=== PATIENT | female | born 1960 | race Caucasian/White ===

== ENCOUNTER 2019-03-21 06:38 | Day surgery (SDC) | payer MEDICAID ==
[~2019-03-21 06:38] MED LIST: ACETAMINOPHEN 1,000 MG/100 ML BTL IVPB ONE; CEFAZOLIN 2 Gram 2 GM/50 ML BAG IVPB SCH; FAMOTIDINE 20MG TABLET PO ONE; HYDROMORPHONE PF 2MG/ML AMP 0.008 MG in 0.9 % SODIUM CHLORIDE 10ML VIA 0.996 ML IV ONE; HYDROMORPHONE PF 2MG/ML AMP 8 MG in 0.9 % SODIUM CHLORIDE 500ML 496 ML IV ONE; MECLIZINE 25 MG TABLET PO ONE; METOCLOPRAMIDE 10 MG TABLET PO ONE
--- NOTE | 2019-03-21 06:38 | History and Physical - [facility] ---
CHIEF COMPLAINT/HISTORY OF CHIEF COMPLAINT: This patient presents with a history of intractable lumbar radiculopathy. Due to the failure of all therapies, she is here for an implanted spinal catheter infusion trial of Hydromorphone to determine if the implantation of a permanent system can be of any value in pain control. PAST MEDICAL HISTORY: Hypothyroidism, chronic obstructive pulmonary disease, hypertension, and cerebrovascular disease. PAST SURGICAL HISTORY: Hysterectomy, ACL knee surgery, and carpal tunnel release. MEDICATIONS ON ADMISSION: List to be provided. ALLERGIES: CLINDAMYCIN AND SERTRALINE. FAMILY/PSYCHOSOCIAL HISTORY: Social history - Smoking and social alcohol. Family history - Thyroid disease, hypertension, and cerebrovascular disease. SYSTEMS REVIEW: The patient is appropriate in no acute distress. The remainder of the systems review is positive for gastritis, degenerative arthritis, depression, and difficulty sleeping. PHYSICAL EXAMINATION: Height is 5'4", weight is 160. No vital signs. HEENT: Within normal limits. LUNGS: Clear. HEART: Rapid and regular. ABDOMEN: Nontender. MUSCULOSKELETAL: Examination of the musculoskeletal system shows diffuse tenderness throughout the lumbar spine. Range of motion does produce pain into both legs across a L5-S1 pattern. Mild motor and mild sensory abnormalities across a L5-S1 distribution, bilateral. Ambulation - Assistive device utilized. NEUROLOGIC: Cranial nerves are intact. IMPRESSION: INTRACTABLE LUMBAR RADICULOPATHY, ICD-10 CODE M54.16 AND M54.17. PLAN: The patient is here for an implanted spinal catheter infusion trial with Hydromorphone to determine if the implantation of a permanent system can be of any value in pain control. The procedure will be considered outpatient although an overnight stay will be evaluated. Because of the epidural blood patch which is a prophylactic measure against a headache, she will be flat for four and slowly elevated for one. We can evaluate possible discharge, but an overnight stay will be recommended. The potential risks, side effects, and complications reviewed spinal cord injury, nerve root injury, paralysis, and . JOB NUMBER: [id number] MTDD
[2019-03-21] MEDS ORDERED: FENTANYL PF 100MCG/2ML VIAL IV ONE (06:39)
[2019-03-21] MEDS ORDERED: PROPOFOL 10 MG/ML VIAL IV ONE (06:39)
[2019-03-21] MEDS ORDERED: LIDOCAINE 2% MDV (20MG/ML) 20ML VIAL IV ONE (06:39)
[2019-03-21] MEDS ORDERED: MIDAZOLAM HCL 2MG/2ML VIAL IV ONE (06:39)
[2019-03-21] MEDS ORDERED: RINGERS SOLUTION,LACTATED 1,000 ML IV ONE ×3 (07:15→09:35)
[2019-03-21] MEDS ORDERED: BUPIVACAINE 0.5% W/EPI MPF 30 ML VIAL SQ ONE ×2 (08:44)
[2019-03-21] MEDS ORDERED: LIDOCAINE 1% W/EPI 1:100,000 MDV 20 ML VIAL SQ ONE ×2 (08:44)
[2019-03-21] MEDS ORDERED: CEFAZOLIN 0.5 G in 0.9 % SODIUM CHLORIDE 1000ML 500 ML IVP ONE (08:45)
[2019-03-21] MEDS ORDERED: HYDROMORPHONE HCL 2 MG/ML VIAL IVP ONE ×2 (09:45→09:51)
[2019-03-21] MEDS ORDERED: METOCLOPRAMIDE 10 MG TABLET PO PRN (10:30)
[2019-03-21] MEDS ORDERED: AL HYDROX/MAG HYDROX 30ML UD PO PRN (10:30)
[2019-03-21] MEDS ORDERED: RINGERS SOLUTION,LACTATED 1,000 ML IV SCH (10:30)
[2019-03-21] MEDS ORDERED: TEMAZEPAM 15 MG CAPSULE PO PRN ×2 (10:30)
[2019-03-21] MEDS ORDERED: DIPHENHYDRAMINE HCL 50 MG/ML VIAL IVP PRN ×2 (10:30)
[2019-03-21] MEDS ORDERED: NALOXONE 0.4 MG/1 ML VIAL IVP PRN (10:30)
[2019-03-21] MEDS ORDERED: HYDROCODONE/APAP 7.5/325MG TABLET PO PRN (10:30)
[2019-03-21] MEDS ORDERED: METOCLOPRAMIDE HCL 10 MG/2 ML VIAL IVP PRN (10:30)
[2019-03-21] MEDS ORDERED: OXYCODONE/APAP 10MG-325MG TABLET PO PRN (10:30)
[2019-03-21] MEDS ORDERED: CLONAZEPAM 1MG TABLET PO PRN (10:30)
[2019-03-21] MEDS ORDERED: DIPHENHYDRAMINE HCL 25 MG CAPSULE PO PRN ×2 (10:30)
[2019-03-21] MEDS ORDERED: ACETAMINOPHEN 325 MG TAB PO PRN ×2 (10:30)
[2019-03-21] MEDS ORDERED: SENNOSIDES/DOCUSATE SODIUM UD CAPSULE PO PRN ×2 (10:30)
[2019-03-21] MEDS ORDERED: HYDROMORPHONE HCL 2 MG/ML VIAL IM PRN (10:30)
[2019-03-21] MEDS ORDERED: HYDROXYZINE PAMOATE 25 MG CAPSULE PO PRN (10:31)
[2019-03-21] MEDS: HYDROMORPHONE HCL 2 MG/ML VIAL IM PRN ×2 (11:01→21:21)
[2019-03-21] MEDS: DICYCLOMINE HCL 10 MG CAPSULE PO SCH ×2 (12:00→17:41)
[2019-03-21] MEDS: OXYCODONE/APAP 10MG-325MG TABLET PO PRN ×2 (14:35→19:06)
[2019-03-21] MEDS: CEFAZOLIN 2 Gram 2 GM/50 ML BAG IVPB SCH (16:10)
[2019-03-21] MEDS: GABAPENTIN 300 MG CAPSULE PO SCH ×2 (16:18→21:22)
[2019-03-21] MEDS ORDERED: TRAZODONE 50 MG TABLET PO SCH (22:00)
[2019-03-21] MEDS: HYDROCODONE/APAP 7.5/325MG TABLET PO PRN (23:59)
[2019-03-22] MEDS: CEFAZOLIN 2 Gram 2 GM/50 ML BAG IVPB SCH
[2019-03-22] MEDS: HYDROCODONE/APAP 7.5/325MG TABLET PO PRN (03:21)
[2019-03-22] MEDS: OXYCODONE/APAP 10MG-325MG TABLET PO PRN (08:24)
[2019-03-22] MEDS ORDERED: HYDROCHLOROTHIAZIDE 12.5 MG CAPSULE PO SCH (10:00)
[2019-03-22] MEDS ORDERED: RANITIDINE HCL 150 MG TABLET PO SCH (10:00)
[2019-03-22] MEDS ORDERED: LISINOPRIL 20 MG TABLET PO SCH (10:00)
[2019-03-22] MEDS ORDERED: ATORVASTATIN 20 MG TABLET PO SCH (10:00)
[2019-03-22] MEDS ORDERED: ANORO (UMECLIDINIUM & VILANTEROL) 62.5MCG/25MCG INH IH SCH (10:00)
[2019-03-22] MEDS ORDERED: DULOXETINE HCL 30 MG CAPSULE.DR PO SCH (10:00)
[2019-03-22] MEDS ORDERED: BUPROPION HCL 150 MG TAB.SR.12H PO SCH (10:00)
--- NOTE | 2019-03-23 06:11 | RADIOLOGY REPORT ---
EXAM: SPINE, 1 VIEW HISTORY: PAIN CATHETER IMPLANT. TECHNIQUE: An AP portable supine view of the spine centered at the thoracic levels is performed. COMPARISON: Same- day intraoperative radiographs. FINDINGS: There is normal bone mineralization. No acute fracture. No definite lytic or blastic bone lesion. There are degenerative endplate changes scattered throughout the visualized spine. Uncovertebral joint and facet joint changes are noted in the visualized cervical spine. A single intraspinal catheter is in place. It likely enters the spinal canal at the mid to upper lumbar levels. The radiopaque tip is demonstrated at the T12 level. IMPRESSION: 1. INTRASPINAL CATHETER IN PLACE WITH ITS RADIOPAQUE TIP PROJECTING AT THE LEVEL OF T12. 2. DEGENERATIVE CHANGES SCATTERED THROUGHOUT THE VISUALIZED SPINE. JOB NUMBER: [id number] MTDD
--- NOTE | 2019-03-28 06:10 | Operative Note ---
DATE OF SURGERY: 03/21/2019 PREOPERATIVE DIAGNOSIS: Lumbar radiculopathy, ICD10 code M54.16 and M54.17. OPERATION: 1. Fluoroscopic-guided access spinal space at L3-4, placement of thin-walled spinal catheter T12. 2. Diagnostic myelography with radiologic supervision and interpretation. 3. Spinal opioid bolus hydromorphone spinal space 0.004 mg. 4. Inc, subcutaneous dissection, and anchoring of spinal catheter supraspinous fascia with a [employer] anchor and nonabsorbable suture. 5. Incision, subcutaneous dissection, and creation of subcutaneous pouch at left posterior gluteal margin ultimately for pump placement site. Subcutaneous dissection performed. 6. Tunneling between midline spinal catheter pouch and left subcutaneous gluteal pouch, placement of external portion of spinal catheter pouch. 7. Interface to spinal catheter with second catheter component by way of connector, tunneling second catheter component 6 cm superior, exiting skin. 8. Interface external catheter to external pump set to deliver hydromorphone at 0.12 mg a day. 9. Epidural blood patch at L4-5, 15 mL autologous blood, sterile technique, left antecubital. 10. Placement of dressing securing catheter and all connections under sterile dressing. Patient transported to recovery room, pillow under head and knees, flat, stable. No side effects from the procedure or sedation. Full functionality of extremities. No unusual pain patterns. SURGEON: Hernandez Doan DO ANESTHESIA: Local with sedation. ANESTHESIA PROVIDER: Hayden Merritt INDICATION: This patient presents with a history of intractable lumbar radiculopathy. Due to the failure of all therapies, she is here for an implanted spinal catheter infusion trial with hydromorphone to determine if the implantation of a permanent system can be of any value in pain control. PROCEDURE: Intravenous line, vital signs monitoring, IV sedation. Prepped and draped in sterile technique. Patient positioned prone. Sterile prep, sterile technique. The spinal interspace at L3-4 was marked on the skin. Skin infiltrated and then a 20-gauge spinal needle with bevel at the long axis and a paramedian approach was used to gain entry into the spinal space. With CSF flow, a thin-walled spinal catheter was advanced, positioned T12. Diagnostic myelography performed resulting in total characteristics were smooth linear in the space. No instructions or redirections. Catheter identified. Myelogram characteristics were appropriate. A bolus of hydromorphone to the spinal space 0.004 mg was given. There was still CSF noted through the needle and to the catheter. Catheter clamped to stop CSF leak. The skin above and below the needle infiltrated, incision made, and subcutaneous dissection was conducted to the supraspinous fascia. The needle was removed and the catheter was anchored at the supraspinous fascia with an anchor device and nonabsorbable suture. CSF still noted through the catheter. Catheter clamped. At the left posterior gluteal margin, a site picked by the patient eventually for the pump, skin infiltrated, incision made, and subcutaneous dissection was conducted to form a subcutaneous pouch. A tunneling tool was then used to carry the spinal catheter into the pouch and interfaced at that point with a second catheter component by way of a connector. This second catheter component was tunneled 6 cm superior exiting the skin. The external catheter was then interfaced to an external pump which was set to deliver hydromorphone at 0.12 mg a day. Antibiotic irrigation. Bovie for hemodialysis. The left lateral pouch was then closed with a running nylon. The midline pouch was closed using Stratafix suture, 2-0 fascia, 3-0 skin. Steri-Strips and standard dressing was applied to all sites. She was then transported to the recovery room. The catheter interfaced to the pump delivering 0.12 mg a day. She will be monitored flat for 4, slowly elevated for 1, and then be advised for an overnight stay although discharge can be arranged if requested. DISCHARGE INSTRUCTIONS: 1. Sites to remain clean and dry. No showering or bathing in any way that would disrupt dressings. If it happens, contact the clinic. 2. Standard medications resume including the antibiotic Levaquin 500 mg once a day for 14 days. 3. Spinal opioid side effects of respiratory depression, nausea, vomiting, constipation, urinary retention, lightheadedness, or rash have all been discussed and reviewed. All other instructions provided, numbers to contact if problems given. She will be discharged when ready. KEITH
== END 2019-03-22 09:01 | disposition home or self-care (01) ==
LOC: SUR 06:38 → MEDSURG 10:02 → SUR 03-22 09:01
PROVIDERS: ATTEND Pain Medicine Interventional Pain Medicine
DX: M54.16 Radiculopathy, lumbar region (principal); M54.17 Radiculopathy, lumbosacral region; I10 Essential (primary) hypertension; E78.00 Pure hypercholesterolemia, unspecified; Z79.01 Long term (current) use of anticoagulants; J44.9 Chronic obstructive pulmonary disease, unspecified; R05 Cough; I71.4 Abdominal aortic aneurysm, without rupture; I25.810 Atherosclerosis of coronary artery bypass graft(s) without angina pectoris; Z98.61 Coronary angioplasty status; K21.9 Gastro-esophageal reflux disease without esophagitis; Z86.73 Personal history of transient ischemic attack (TIA), and cerebral infarction without residual deficits
CPT/HCPCS: 62350; 62362; 01936; 85002; 72020; Q9967; J3010; J1170 ×2; J0690 ×2; J1200; J7030; J7040; J7120

== ENCOUNTER 2019-04-11 13:03 | Day surgery (SDC) | payer MEDICAID ==
--- NOTE | 2019-04-11 07:08 | History and Physical - [facility] ---
CHIEF COMPLAINT/HISTORY OF CHIEF COMPLAINT: This patient with an extended implanted catheter infusion trial of Hydromorphone is here for removal of the implanted catheter because of pump trial failure. PAST MEDICAL HISTORY: Unchanged. PAST SURGICAL HISTORY: Unchanged. MEDICATIONS ON ADMISSION: Unchanged. FAMILY/PSYCHOSOCIAL HISTORY: Social history - Unchanged. Family history - Unchanged. SYSTEMS REVIEW: The patient seems appropriate. PHYSICAL EXAMINATION: HEENT: Within normal limits. LUNGS: Clear. HEART: Rapid and regular. MUSCULOSKELETAL: Examination of the musculoskeletal system shows implanted catheter infusion trial dressings intact. Externalized pump intact. Primary pain pattern is a bilateral lower extremity radiculopathy. IMPRESSION: 1. INTRACTABLE LUMBAR RADICULOPATHY, ICD-10 CODE M54.16 AND M54.17. 2. IMPLANTED SPINAL CATHETER INFUSION TRIAL OF HYDROMORPHONE. PLAN: Our infusion trial is up at 0.5 mg a day, but this patient has not achieved appreciable pain control and for that reason this is a failed trial and we are here to remove the catheter on an outpatient basis. All potential risks, side effects and complications have been reviewed and discussed. JOB NUMBER: [id number] MTDD
[~2019-04-11 13:03] MED LIST changes: +CEFAZOLIN 2 Gram 2 GM/50 ML BAG IVPB ONE; -CEFAZOLIN 2 Gram 2 GM/50 ML BAG IVPB SCH; +HYDROMORPHONE HCL 0.06 GM in 0.9 % SODIUM CHLORIDE 10ML VIA 20 ML IV ONE; -HYDROMORPHONE PF 2MG/ML AMP 8 MG in 0.9 % SODIUM CHLORIDE 500ML 496 ML IV ONE
[2019-04-11] MEDS ORDERED: PROPOFOL 10 MG/ML VIAL IV ONE (13:04)
[2019-04-11] MEDS ORDERED: LIDOCAINE 2% MDV (20MG/ML) 20ML VIAL IV ONE (13:04)
[2019-04-11] MEDS ORDERED: FENTANYL PF 100MCG/2ML VIAL IV ONE (13:04)
[2019-04-11] MEDS ORDERED: MIDAZOLAM HCL 2MG/2ML VIAL IV ONE (13:04)
[2019-04-11] MEDS ORDERED: RINGERS SOLUTION,LACTATED 1,000 ML IV ONE (13:40)
[2019-04-11] MEDS ORDERED: BUPIVACAINE 0.5% W/EPI MPF 30 ML VIAL SQ ONE ×2 (15:17)
[2019-04-11] MEDS ORDERED: CEFAZOLIN 0.5 G in 0.9 % SODIUM CHLORIDE 1000ML 500 ML IVP ONE (15:17)
[2019-04-11] MEDS ORDERED: LIDOCAINE 1% W/EPI 1:200,000 MPF 30ML SQ ONE ×2 (15:17)
[2019-04-11] MEDS ORDERED: FENTANYL PF 100MCG/2ML VIAL IVP ONE ×3 (16:01→16:15)
[2019-04-11] MEDS ORDERED: HYDROCODONE/APAP 7.5/325MG TABLET PO ONE (16:01)
--- NOTE | 2019-04-16 08:50 | Operative Note ---
DATE OF SERVICE: 04/11/2019. DATE OF SURGERY: 04/11/2019. PRIMARY: None. PREOPERATIVE DIAGNOSES: 1. Lumbar radiculopathy, ICD-10 Code M54.16, M54.17. 2. Implanted spinal catheter fusion utilizing hydromorphone, unsuccessful. OPERATION: Fluoroscopic-guided incision, subdissection and removal of implanted spinal catheter. SURGEON: Hernandez Doan DO. ANESTHESIA: Local sedation. ANESTHESIA PROVIDER: Lakia Glynn INDICATION: This patient presents with a history of intractable lumbar radiculopathy. Due to the failure of all therapies, an implant of spinal catheter was conducted. Unfortunately, immediate this patient developed a spinal headache, which kept her down for at least 7-10 days of the 14-day trial. For that reason, the trial was extended another week. At the end of the trial extended period, the patient still had not achieved any appreciable pain control. She is here for removal of the implanted catheter. PROCEDURE: Intravenous line, vital sign monitoring, IV sedation, prep and drape, sterile technique. Patient positioned prone. Sterile prep, sterile technique. Midline incision. Infiltrated, incision made, subcu dissection was conducted to the spinal catheter anchor. [place] suture removed, a pursestring suture placed, the catheter removed, pursestring suture tightened to stop CSF leak. The spinal catheter removed intact. The radiopaque bead identified. Under imaging, no catheter in the space. At the left posterior gluteal margin pouch, skin infiltrated, incision made, subcutaneous dissection was conducted to the interface between internal and external catheter. Connection was clamped, external catheter cut, and then removed by pulling away from the incision. Antibiotic irrigation. Hemostasis. The incisions were then closed using Stratafix suture 2-0 fascia, 3-0 skin, Dermabond closure. She was transported to the recovery room stable, and no side effects from the procedure or sedation. When fully awake and alert, she was prepared for discharge. DISCHARGE INSTRUCTIONS: 1. Site is to remain clean and dry. No showering or bathing in any way that would disrupt dressings. If it happens, contact the clinic. 2. Standard medications resumed, including the antibiotic Levaquin which she will continue for another 7-10 days. 3. She is at risk for spinal headache. She should keep her activities low for the next 12-24 hours and then slowly, gradually increase her activities. 4. Her standard medications were resumed. She was given a prescription for [place] 10/325 previously to manage the incisional pain from the trial. 5. All other instructions provided. Numbers to contact with problems given. She will be seen in the office in 7-10 days. Office will contact the patient to set up the evaluation for site check. CC: DO KEITH Bautista
== END 2019-04-11 16:46 | disposition home or self-care (01) ==
LOC: SUR 13:03
PROVIDERS: ATTEND Pain Medicine Interventional Pain Medicine
DX: M54.16 Radiculopathy, lumbar region (principal); M54.17 Radiculopathy, lumbosacral region; I10 Essential (primary) hypertension; E78.00 Pure hypercholesterolemia, unspecified; Z79.01 Long term (current) use of anticoagulants; J44.9 Chronic obstructive pulmonary disease, unspecified; I25.10 Atherosclerotic heart disease of native coronary artery without angina pectoris; Z95.5 Presence of coronary angioplasty implant and graft; K21.9 Gastro-esophageal reflux disease without esophagitis; Z86.73 Personal history of transient ischemic attack (TIA), and cerebral infarction without residual deficits; G62.9 Polyneuropathy, unspecified; F17.210 Nicotine dependence, cigarettes, uncomplicated
CPT/HCPCS: J0690; J7030; J7120